=== PATIENT | female | born 1955 | race Caucasian/White ===

== ENCOUNTER → 2018-01-12 | Outpatient (CLI) | payer OTHER ==
[~2018-01-12] MED LIST: NS 100 ML IV 100 ML IV ONE
[2018-01-12 10:51] LABS: ALANINE AMINOTRANSFERASE 19 Units/L (12-78); ALBUMIN 3.6 g/dL (3.4-5.0); ALKALINE PHOSPHATASE 86 Units/L (46-116); ASPARTATE AMINO TRANSFERASE 15 Units/L (15-37); BLOOD UREA NITROGEN 12 mg/dL (7-18); CARBON DIOXIDE 32.6 mmol/L (21-32); CHLORIDE 104 mmol/L (98-107); CREATININE 0.95 mg/dL (0.55-1.02); SODIUM 141 mmol/L (136-145); TOTAL PROTEIN 7.6 g/dL (6.4-8.2); eGFR BLACK RACES > 60 (>60); eGFR NON BLACK RACES > 60 (>60)
[2018-01-12 10:54] LABS: BASOPHILS # (AUTO) 0.1 X10^3/uL (0.0-0.1); BASOPHILS % (AUTO) 0.9 % (0.2-1.0); EOSINOPHILS # (AUTO) 0.3 x10^3/uL (0.0-0.2); EOSINOPHILS % (AUTO) 3.3 % (0.9-2.9); HEMATOCRIT 37.9 % (36.0-47.0); HEMOGLOBIN 12.9 g/dL (12.0-16.0); LYMPHOCYTES # (AUTO) 2.2 X10^3/uL (1.3-2.9); LYMPHOCYTES % (AUTO) 26.5 % (21.0-51.0); MEAN CORPUSCULAR HEMOGLOBIN 28.4 pg (27.0-34.0); MEAN CORPUSCULAR VOLUME 83.5 fL (80.0-100.0); MEAN PLATELET VOLUME 8.7 fL (7.4-11.0); MONOCYTES # (AUTO) 0.7 x10^3/uL (0.3-0.8); MONOCYTES % (AUTO) 8.5 % (0.0-13.0); NEUTROPHILS # (AUTO) 5.1 x10^3/uL (2.2-4.8); NEUTROPHILS % (AUTO) 60.8 % (42.0-75.0); PLATELET COUNT 231 X10^3/uL (150.0-450.0); RED BLOOD COUNT 4.54 X10^6/uL (3.5-5.4); RED CELL DISTRIBUTION WIDTH 13.9 % (11.6-16.5); WHITE BLOOD COUNT 8.5 X10^3/uL (3.6-10.0)
--- NOTE | 2018-01-12 11:51 | CT ---
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 Coronal and sagittal reformatted images are submitted as well. Lung bases are clear and there are no pleural effusions. The liver and spleen are normal in size and enhance uniformly. T he gallbladder is surgically absent. The adrenal glands and left kidney appear unremarkable. A 3.3 cm cyst arising from the lower pole of the right kidney is noted. There is ill-defined [place] within the mesenteries centrally of uncertain significance. The uterus is absent. No adenopathy is demonstrated. Moderate to advanced spondylitic changes of the lower thoracic spine with disc calci fication and mild to moderate spondylosis of the upper lumbar spine is demonstrated. Impression: There is limited mesenteric stranding of uncertain significance. This can be seen in case s of treated lymphoma. Previous cholecystectomy and hysterectomy. Right renal cyst. Reported By:
== END ==
LOC: RAD 10:11
PROVIDERS: ATTEND Surgery
DX: C83.53 Lymphoblastic (diffuse) lymphoma, intra-abdominal lymph nodes (principal)
CPT/HCPCS: 36415; 74177; 80053; 82378; 85025; A4222